=== PATIENT | male | born 1955 | race Caucasian/White ===

== ENCOUNTER → 2018-03-25 | Outpatient (CLI) | payer OTHER ==
[~2018-03-25] MED LIST: PROHANCE 279.3MG/ML 15ML VIAL (A9576) As Ordered; PROHANCE 279.3MG/ML 5ML VIAL (A9576) As Ordered
== END ==
LOC: M RAD 09:01
DX: H90.42 Sensorineural hearing loss, unilateral, left ear, with unrestricted hearing on the contralateral side (principal)
CPT/HCPCS: A9576

== ENCOUNTER → 2019-03-22 | Outpatient (CLI) | payer OTHER, MEDICARE ==
--- NOTE | 2019-03-22 13:52 | REP ---
MRI RIGHT SHOULDER: TECHNIQUE: Axial T2 fat sat, gradient echo, sagittal oblique T2 fat sat, coronal oblique T1, T2 fat sat. There is a full thickness complete tear of the supraspinatus tendon, with retraction of the musculotendinous junction proximally 4 cm. There is a complete full thickness tear of the infraspinatus tendon and a high grade tear of the subscapularis tendon. There are moderate hypertrophic degenerative changes of the acromioclavicular joint with a type 2 acromion. Biceps tendon is within the bicipital groove with mild surrounding fluid. There is no Hill-Sachs deformity. Deltoid muscle demonstrates no abnormal signal. There is a tear of the superior labrum undermining the biceps labral complex. There is a tear of the inferior labrum as well as a tear of the posterior labrum. There is no paralabral cyst. There is mild subchondral marrow edema in the superolateral humeral head as well as in the acromion. There is a moderate joint effusion. Humeral head is high riding in the glenoid fossa. It abuts the acromion. There is mild to moderate diffuse chondromalacia at the glenohumeral joint. IMPRESSION: Complete full thickness tear supraspinatus tendon with retraction of the musculotendinous junction approximately 4 cm. There is also a complete tear of the infraspinatus tendon and high grade tear of the subscapularis. There is moderate hypertrophic degenerative change of the acromioclavicular joint with a type 2 acromion. There is mild fluid surrounding the biceps tendon within the bicipital groove which may indicate tenosynovitis. There is a tear of the superior labrum undermining the biceps labral complex. There are also tears of the posterior and inferior labrum. Moderate joint effusion. Electronically Signed by Malcolm Lai MD 03/22/2019 04:37 P
== END ==
LOC: M RAD 09:50
PROVIDERS: ATTEND Orthopaedic Surgery Sports Medicine
DX: S43.084D Other dislocation of right shoulder joint, subsequent encounter (principal); X58.XXXD Exposure to other specified factors, subsequent encounter

== ENCOUNTER → 2019-08-04 | Outpatient (REF) | payer MEDICARE, OTHER ==
[~2019-08-04] MED LIST changes: +ATOR40TA75 PO; +BIMA01SOL OU; +COLC1TAB13 PO; +ECOT81TA5 PO; +JANU100T PO; +MELO15TA28 PO; +METF500T13 PO; -PROHANCE 279.3MG/ML 15ML VIAL (A9576) As Ordered; -PROHANCE 279.3MG/ML 5ML VIAL (A9576) As Ordered; +TIMO0.5S39 OU; +ZYLO300T6 PO
[2019-08-04 20:55] LABS: THYROID STIMULATING HORMONE 1.7 uIU/ML (0.358-3.740)
[2019-08-12 00:07] LABS: CERULOPLASMIN 30.8 mg/dL (16.0-31.0); VITAMIN B1 LEVEL WHOLE BLOOD 146.4 nmol/L (66.5-200.0); VITAMIN B6,PYRIDOXAL PHOSPHATE 6.2 ug/L (5.3-46.7); VITAMIN E(GAMMA TOCOPHEROL) 2.8 mg/L (0.5-4.9)
== END ==
LOC: M LABNEURO 18:23
PROVIDERS: ATTEND Psychiatry & Neurology Neurology
DX: E03.9 Hypothyroidism, unspecified (principal); E83.01 Wilson's disease; D51.9 Vitamin B12 deficiency anemia, unspecified; E51.9 Thiamine deficiency, unspecified

== ENCOUNTER → 2019-08-06 | Outpatient (REF) | payer MEDICARE | LOC: M LABNEURO 11:23 | PROVIDERS: ATTEND Psychiatry & Neurology Neurology | DX: E83.01 Wilson's disease (principal); E03.9 Hypothyroidism, unspecified; D51.9 Vitamin B12 deficiency anemia, unspecified; E51.9 Thiamine deficiency, unspecified ==

== ENCOUNTER 2019-09-07 18:44 | Observation (INO) | payer MEDICARE, MEDICAID ==
[~2019-09-07] VITALS: Ht 167.6 cm; Wt 105.0 kg
[2019-09-07 20:45] VITALS: BP 142/84
[2019-09-07] MEDS ORDERED: HumaLOG INSULIN (NovoLOG) PER UNIT SC SCH (21:00)
[2019-09-07] MEDS ORDERED: allopurinoL 300 MG TAB PO SCH (21:00)
[2019-09-07] MEDS ORDERED: ATORVASTATIN 20 MG TAB PO SCH (21:00)
[2019-09-07] MEDS ORDERED: COLC1TAB13 PO (21:10)
[2019-09-07] MEDS ORDERED: TIMO0.5S39 OU (21:10)
[2019-09-07] MEDS ORDERED: JANU100T PO (21:10)
[2019-09-07] MEDS ORDERED: ZYLO300T6 PO (21:10)
[2019-09-07] MEDS ORDERED: MELO15TA28 PO (21:10)
[2019-09-07] MEDS ORDERED: ATOR40TA75 PO (21:10)
[2019-09-07] MEDS ORDERED: BIMA01SOL OU (21:10)
[2019-09-07] MEDS ORDERED: METF500T13 PO (21:40)
[2019-09-07] MEDS ORDERED: ECOT81TA5 PO (21:40)
[2019-09-07] MEDS ORDERED: GLUCOSE 4 GM CHEW TABLET PO PRN (23:30)
[2019-09-07] MEDS ORDERED: GLUCAGON FOR INJ 1 MG VIAL (J1610) SC PRN (23:30)
[2019-09-07] MEDS ORDERED: DEXTROSE 50% 50 ML SYRINGE IV PRN (23:30)
[2019-09-07] MEDS ORDERED: COLCHICINE 0.6 MG TAB PO PRN (23:30)
[2019-09-07 23:59] VITALS: BP 149/87
--- NOTE | 2019-09-08 02:23 | HPEPDOC ---
[facility] Medical History & Physical Date of Admission Sep 07, 2019 Date of Service: Sep 07, 2019 Attending Physician: KANDIS PUTNAM MD History and Physical CHIEF COMPLAINT: Transferred from [facility] for left-sided facial HISTORY OF PRESENT ILLNESS: 64-year-old male with past medical history of diabetes mellitus, hypertension, hyperlipidemia, aortic aneurysm, status post surgical repair and arthritis presents from [facility] with left facial/arm numbness. Patient was doing well up until earlier today when he started having t hese symptoms, self resolved within a couple of minutes and have not recurred since. Patient had imaging done CT of head done at [facility], which did not show any acute pathology, MRI was recommended for follow-up. Of note, patient had recent aortic aneurysm surgery a couple of months ago. Patient is currently asymptomatic and comfortable in bed, no complaints at this time, symptoms have have not recurred since the initial episode. He denies any shortness of breath, chest pain, nausea, vomiting, abdominal pain, diarrhea or constipation. 10 point review of system is negative except for above PAST MEDICAL HISTORY: 1. Hypertension. 2. . Diabetes mellitus. 3. , Hyperlipidemia. 4. Aortic aneurysm 5. Melanoma PAST SURGICAL HISTORY: 1. Aortic aneurysm repair. SOCIAL HISTORY: Never smoker. Denies alcohol use. Denies drug use FAMILY HISTORY: Positive for heart disease ALLERGIES: Please see below. HOME MEDICATIONS: Please see below. PHYSICAL EXAMINATION: VITAL SIGNS: Please see below. GENERAL: No distress HEENT: Normocephalic, atraumatic, moist mucous membranes NECK: Supple CARDIOVASCULAR EXAMINATION: S1, S2, no murmurs RESPIRATORY EXAMINATION: Clear to auscultation, no wheezing ABDOMINAL EXAMINATION: Soft, nontender, nondistended, positive bowel sounds EXTREMITIES: Range of motion intact SKIN: No rash NEUROLOGICAL EXAMINATION: Alert and oriented 3, no focal deficits PSYCHIATRIC EXAMINATION: Calm and cooperative LABORATORY DATA: See below. IMAGING: CT head without acute pathology MICROBIOLOGY: Please see below. ASSESSMENT: 64-year-old male with multiple medical comorbidities presents from [facility] with symptoms concerning for TIA and rule out stroke. PLAN: 1. Left facial/arm numbness. Self resolved a couple minutes, have not recurred since, CT head and [facility] negative for acute pathology, MRI ordered, telemetry monitoring, aspirin 81 mg daily, further management based on MRI results. 2. Diabetes mellitus. Sliding scale insulin with meals and at bedtime 3. Hyperlipidemia. Continue atorvastatin 4. Gout. Continue allopurinol Patient is supposedly on midodrine, unsure why, will hold for now and monitor bl ood pressure. DVT prophylaxis: Lovenox. GI prophylaxis: Not needed Vital Signs Vital Signs Date Time Temp Pulse Resp B/P (MAP) Pulse Ox O2 Delivery O2 Flow Rate FiO2 09/07/19 23:59 97.4 80 16 149/87 (107) 94 Room Air Laboratory Data Labs 24H Laboratory Tests 2 09/08/19 00:01: Bedside Glucose (Misc Panel) 133H Home Medications Scheduled Allopurinol (Zyloprim) 300 Mg Tablet, 300 MG PO QHS Atorvastatin Calcium (Atorvastatin Calcium) 40 Mg Tablet, 40 MG PO QHS Bimatoprost (Lumigan) 0.01% 2.5ML Drops, 1 DROP OU QHS Meloxicam (Meloxicam) 15 Mg Tablet, 15 MG PO DAILY Metformin HCl (Metformin HCl) 500 Mg Tablet, 500 MG PO BID Sitagliptin Phosphate (Januvia) 100 Mg Tablet, 100 MG PO DAILY Timolol Maleate (Timolol Maleate) 0.5% 5ML Drop.daily, 1 DROP OU DAILY Scheduled PRN Aspirin (Ecotrin) 81 Mg Tablet.dr, 162 MG PO DAILY PRN for PAIN / FEVER Colchicine (Colchicine) 0.6 Mg Tablet, 0.6 MG PO TID PRN for GOUT SYMPTOMS Allergies Coded Allergies: No Known Allergies (Unverified , 09/07/19) A-FIB/CHADSVASC A-FIB History Current/History of A-Fib/PAF?: No KANDIS PUTNAM MD Sep 08, 2019 02:23
[2019-09-08 04:00] VITALS: BP 165/95
[2019-09-08 05:31] LABS: HEMATOCRIT 44.7 % (42.0-52.0); HEMOGLOBIN 15.4 g/dl (13.5-17.5); MEAN CORPUSCULAR HEMOGLOBIN 29.8 pg (27.0-33.0); MEAN CORPUSCULAR HGB CONC 34.5 g/dl (32.0-36.5); MEAN CORPUSCULAR VOLUME 86.5 fl (80.0-96.0); PLATELET COUNT, AUTOMATED 224 10^3/uL (150-450); RED BLOOD COUNT 5.17 10^6/uL (4.30-6.10); WHITE BLOOD COUNT 6.9 10^3/uL (4.0-10.0)
[2019-09-08 05:55] LABS: ALBUMIN 3.6 GM/DL (3.2-5.2); ALT/SGPT 57 U/L (12-78); BLOOD UREA NITROGEN 17 MG/DL (7-18); CALCIUM LEVEL 8.8 MG/DL (8.8-10.2); CARBON DIOXIDE LEVEL 30 MEQ/L (21-32); CHLORIDE LEVEL 101 MEQ/L (98-107); GLOMERULAR FILTRATION RATE > 60.0 (>49); GLUCOSE, FASTING 124 MG/DL (70-100); MAGNESIUM LEVEL 2.1 MG/DL (1.8-2.4); SODIUM LEVEL 136 MEQ/L (136-145); TOTAL PROTEIN 7.4 GM/DL (6.4-8.2)
[2019-09-08] MEDS ORDERED: ENOXAPARIN 40 MG/0.4 ML SYRINGE (J1650) SC SCH (06:00)
[2019-09-08] MEDS: HumaLOG INSULIN (NovoLOG) PER UNIT SC SCH ×2 (07:55→13:34)
[2019-09-08 08:00] VITALS: BP 139/94
[2019-09-08] MEDS ORDERED: ASPIRIN 81 MG ENTERIC TAB PO SCH (09:00)
[2019-09-08] MEDS ORDERED: FLUBLOK(EGG FREE)(QUAD)INFLUENZA VACC 0.5ML SYRINGE (90682)18YRS&OLDER IM ONE (09:00)
[2019-09-08] MEDS ORDERED: TIMOLOL MALEATE 0.5% OPHTH SOLN 5 ML OU SCH (09:00)
[2019-09-08] MEDS ORDERED: SLF 3 ML SYR IV PRN (10:30)
--- NOTE | 2019-09-08 13:27 | REP ---
MRI BRAIN WITHOUT CONTRAST: HISTORY: Left facial and arm numbness. Comparison brain MRI study March 25, 2018. TECHNIQUE: Axial and sagittal imaging planes are utilized for T1 and T2-weighted scans. Sequences include spin-echo, fast spin echo, FLAIR, and diffusion weighted sequences. MRI FINDINGS: No bony calvarial lesion is seen. Craniocervical junction and upper cervical cord remain unremarkable. Diffusion weighted scans show no evidence of restricted diffusion to suggest acute ischemia. There is no evidence of acute intracranial hemorrhage. There is a tiny focus of periventricular low signal on gradient echo images in the left posterior frontal lobe region. Corresponding tiny sliver of low signal on diffusion weighted scans is seen and is unchanged from the March 25, 2018 study. No extra-axial fluid collection or mass lesion is observed. IMPRESSION: No change from the March 25, 2018 prior study. No acute intracranial abnormality. Electronically Signed by Olayinka Sharp MD 09/08/2019 01:30 P
[2019-09-08 13:30] VITALS: BP 148/90
[2019-09-08] MEDS ORDERED: SLF 3 ML SYR IV SCH (14:00)
--- NOTE | 2019-09-08 14:04 | DS.PDOC ---
Discharge Summary General Date of Admission Sep 07, 2019 at 20:15 Date of Discharge 09/08/19 Discharge Summary PROCEDURES PERFORMED DURING STAY: [None]. DISCHARGE DIAGNOSES: TIA SECONDARY DIAGNOSIS: Hypertension. Diabetes mellitus. Hyperlipidemia. Aortic aneurysm s/p repair in jun 2019 Obesity GARRICK untreated. Could not use the CPAP machine Melanoma Gout Glaucoma COMPLICATIONS/CHIEF COMPLAINT: CVA. HISTORY OF PRESENT ILLNESS: See history and physical HOSPITAL COURSE: 64-year-old male with past medical history of diabetes mellitus, hypertension, hyperlipidemia, aortic aneurysm, status post surgical repair and arthritis presents from [facility] with left facial/arm numbness. Patient was doing well up until earlier on 09/07/19 when he started having these symptoms, self resolved within a couple of minutes and have not recurred since. Patient had imaging done CT of head done at [facility], which did not show any acute pathology, MRI was done on 09/08/19 and did not reveal any acute events. Patient was monitored on telemetry with no arrhythmias noted. Patient was evaluated by PT and recommended home PT. He was diagnosed with TIA. To continue with ASA, statin, hypertension, diabetes control. DISCHARGE MEDICATIONS: Please see below. ALLERGIES: Please see below. PHYSICAL EXAMINATION ON DISCHARGE: VITAL SIGNS: Please see below. GENERAL: No distress HEENT: Normocephalic, atraumatic, moist mucous membranes NECK: Supple CARDIOVASCULAR EXAMINATION: S1, S2, no murmurs RESPIRATORY EXAMINATION: Clear to auscultation, no wheezing ABDOMINAL EXAMINATION: Soft, nontender, nondistended, positive bowel sounds EXTREMITIES: Range of motion intact SKIN: No rash NEUROLOGICAL EXAMINATION: Alert and oriented 3, no focal deficits PSYCHIATRIC EXAMINATION: Calm and cooperative LABORATORY DATA: Please see below. IMAGING: MRI: Diffusion weighted scans show no evidence of restricted diffusion to suggest acute ischemia. There is no evidence of acute intracranial hemorrhage. There is a tiny focus of periventricular low signal on gradient echo images in the left posterior frontal lobe region. Corresponding tiny sliver of low signal on diffusion weighted scans is seen and is unchanged from the March 25, 2018 study. ACTIVITY: [As tolerated]. DIET: Carb consistent DISCHARGE PLAN: Home DISPOSITION: . DISCHARGE INSTRUCTIONS: PMD in 2 week DISCHARGE CONDITION: [Stable]. TIME SPENT ON DISCHARGE: 35 minutes. Vital Signs/I&Os Vital Signs Date Time Temp Pulse Resp B/P (MAP) Pulse Ox O2 Delivery O2 Flow Rate FiO2 09/08/19 13:30 97.0 109 22 148/90 (109) 96 Room Air I&O- Last 24 Hours up to 6 AM 09/08/19 06:00 Intake Total 460 ml Output Total 950 ml Balance -490 ml Laboratory Data Labs 24H Laboratory Tests 2 09/08/19 00:01: Bedside Glucose (Misc Panel) 133H 09/08/19 05:15: Nucleated Red Blood Cells % (auto) 0.0, Anion Gap 5L, Glomerular Filtration Rate > 60.0, Calcium Level 8.8, Magnesium Level 2.1, Total Bilirubin 1.0, Aspartate Amino Transf (AST/SGOT) 32, Alanine Aminotransferase (ALT/SGPT) 57, Alkaline Phosphatase 101, Total Protein 7.4, Albumin 3.6, Albumin/Globulin Ratio 0.95L CBC/BMP Laboratory Tests 09/08/19 05:15 FSBS Laboratory Tests Test 09/08/19 00:01 Range/Units Bedside Glucose (Misc Panel) 133 80-115 MG/DL Discharge Medications Scheduled Allopurinol (Zyloprim) 300 Mg Tablet, 300 MG PO QHS, (Reported) Atorvastatin Calcium (Atorvastatin Calcium) 40 Mg Tablet, 40 MG PO QHS, (Reported) Bimatoprost (Lumigan) 0.01% 2.5ML Drops, 1 DROP OU QHS, (Reported) Meloxicam (Meloxicam) 15 Mg Tablet, 15 MG PO DAILY, (Reported) Metformin HCl (Metformin HCl) 500 Mg Tablet, 500 MG PO BID, (Reported) Sitagliptin Phosphate (Januvia) 100 Mg Tablet, 100 MG PO DAILY, (Reported) Timolol Maleate (Timolol Maleate) 0.5% 5ML Drop.daily, 1 DROP OU DAILY, (Reported) Scheduled PRN Aspirin (Ecotrin) 81 Mg Tablet.dr, 162 MG PO DAILY PRN for PAIN / FEVER, (Reported) Colchicine (Colchicine) 0.6 Mg Tablet, 0.6 MG PO TID PRN for GOUT SYMPTOMS, (Reported) Allergies Coded Allergies: No Known Allergies (Unverified , 09/07/19) SHABANA CHAVIRA MD Sep 08, 2019 14:04
== END 2019-09-08 15:15 | disposition home or self-care (01) ==
LOC: M PCU 20:15 → INTOOBSV 20:15 → UNDOADMIN 20:15 → UNDODISIN 09-08 15:15
PROVIDERS: ADMIT Internal Medicine; ATTEND Internal Medicine
DX: G45.9 Transient cerebral ischemic attack, unspecified (principal); R20.0 Anesthesia of skin; E11.9 Type 2 diabetes mellitus without complications; I10 Essential (primary) hypertension; E78.5 Hyperlipidemia, unspecified; H40.9 Unspecified glaucoma; M19.90 Unspecified osteoarthritis, unspecified site; M10.9 Gout, unspecified; E66.9 Obesity, unspecified; G47.33 Obstructive sleep apnea (adult) (pediatric); Z68.37 Body mass index [BMI] 37.0-37.9, adult; Z85.828 Personal history of other malignant neoplasm of skin; Z86.79 Personal history of other diseases of the circulatory system; Z79.899 Other long term (current) drug therapy; Z79.84 Long term (current) use of oral hypoglycemic drugs
CPT/HCPCS: 36415; 70551; 80053; 83735; 85027; 90682; 96372; 97530; G0008; G0378; J1650

== ENCOUNTER → 2023-04-15 | Outpatient (CLI) | payer OTHER, MEDICAID ==
[~2023-04-15] MED LIST changes: +COLC0.6T47 PO; -COLC1TAB13 PO; +ISOVUE-370 76% 100ML VIAL ONE; +METO1TAB87
== END ==
LOC: M PLAIMG 09:14
PROVIDERS: ATTEND Internal Medicine Medical Oncology
DX: L04.0 Acute lymphadenitis of face, head and neck (principal)
CPT/HCPCS: 70487; 70491; Q9967

== ENCOUNTER → 2023-07-28 | Outpatient (CLI) | payer MEDICAID, OTHER ==
[~2023-07-28] MED LIST changes: -ISOVUE-370 76% 100ML VIAL ONE; +LIDOCAINE 1% MDV 20ML VIAL As Ordered ONE
[2023-07-28 09:41] VITALS: TEMP 97.3
[2023-07-28 10:05] VITALS: BP 159/91; O2SAT 96
== END ==
LOC: M IRPRO 09:16
PROVIDERS: ATTEND Otolaryngology
DX: R22.1 Localized swelling, mass and lump, neck (principal)

== ENCOUNTER → 2023-08-26 | Outpatient (CLI) | payer OTHER ==
[2023-08-26 09:35] VITALS: TEMP 97.3
[2023-08-26 10:30] VITALS: BP 140/100; O2SAT 97
== END ==
LOC: M IRPRO 09:27
PROVIDERS: ATTEND Otolaryngology
DX: R22.1 Localized swelling, mass and lump, neck (principal)

== ENCOUNTER → 2023-10-21 | Outpatient (CLI) | payer MEDICAID, OTHER ==
[~2023-10-21] MED LIST changes: +ELIQ5TAB; +ISOVUE-370 76% 100ML VIAL As Ordered ONE; -LIDOCAINE 1% MDV 20ML VIAL As Ordered ONE
== END ==
LOC: M RAD 13:41
PROVIDERS: ATTEND Internal Medicine Medical Oncology
DX: R59.1 Generalized enlarged lymph nodes (principal)
CPT/HCPCS: 70487; Q9967

== ENCOUNTER → 2023-12-09 | Outpatient (CLI) | payer OTHER ==
[~2023-12-09] MED LIST changes: +ALLO300T2 PO; -ELIQ5TAB; +ELIQ5TAB PO; +GABA-1171 PO; +GLIP5TAB17 PO; -ISOVUE-370 76% 100ML VIAL As Ordered ONE; +JANU25TA PO; +METF10004 PO; -METO1TAB87; +METO1TAB87 PO; +MIDO10TA PO
== END ==
LOC: M RAD 12:46
PROVIDERS: ATTEND Otolaryngology
DX: R22.1 Localized swelling, mass and lump, neck (principal)

== ENCOUNTER → 2023-12-09 | Outpatient (CLI) | payer MEDICAID, OTHER ==
[~2023-12-09] MED LIST changes: +LIDOCAINE 1% MDV 20ML VIAL As Ordered ONE
[2023-12-09 11:50] VITALS: TEMP 98.2
[2023-12-09 13:22] VITALS: BP 146/86; O2SAT 97
== END ==
LOC: M IRPRO 11:40
PROVIDERS: ATTEND Internal Medicine Medical Oncology
DX: R59.0 Localized enlarged lymph nodes (principal)